=== PATIENT | male | born 1995 | race African-American/Black ===

== ENCOUNTER 2018-11-26 13:10 | Emergency (ER) | payer BC, SELFPAY ==
[2018-11-26] MEDS ORDERED: Albuterol Sulfate 2.5 mg/3 ml Neb ONE (13:34)
[2018-11-26] MEDS ORDERED: predniSONE 20 MG TAB ONE (13:54)
== END 2018-11-26 13:55 | disposition home or self-care (01) ==
LOC: NAV ERS 13:10
DX: J45.909 Unspecified asthma, uncomplicated (principal)
CPT/HCPCS: J7512; J7611; J7620